=== PATIENT | female | born 1965 | race Caucasian/White ===

== ENCOUNTER 2020-10-28 14:15 | Emergency (ER) | payer OTHER | END 2020-10-28 15:43 | disposition left against medical advice (07) | LOC: FER 14:15 | DX: B34.9 Viral infection, unspecified (principal); I10 Essential (primary) hypertension | CPT/HCPCS: 99284 ==

== ENCOUNTER → 2021-01-20 | Day surgery (SDC) | payer OTHER ==
[~2021-01-20] VITALS: Ht 172.7 cm; Wt 106.7 kg
[~2021-01-20] MED LIST: EFFEXOR XR150 MG PO; HYDROCHLOROTHIA50 MG PO; HYDROCODON-ACE1 EAC2 PO; LAMICTAL100 MG PO; LEVOTHYROXINE175 MCG PO; LOSARTAN POTASS50 MG PO; NORVASC5 MG PO; OMEPRAZOLE40 MG PO; ONDANSETRON HCL4 MG PO; VENTOLIN (2.5 MG/3 M INH; VITAMIN B-121000 MC1 IJ; [UNRECOGNIZED DRUG - OTHER] PO
== END | disposition home or self-care (01) ==
LOC: FAS 06:33
DX: Z12.11 Encounter for screening for malignant neoplasm of colon (principal); K63.5 Polyp of colon; L91.8 Other hypertrophic disorders of the skin; J30.9 Allergic rhinitis, unspecified; F41.9 Anxiety disorder, unspecified; F31.9 Bipolar disorder, unspecified; K21.9 Gastro-esophageal reflux disease without esophagitis; I10 Essential (primary) hypertension; E78.5 Hyperlipidemia, unspecified; E03.9 Hypothyroidism, unspecified; G47.00 Insomnia, unspecified; E53.8 Deficiency of other specified B group vitamins; E66.9 Obesity, unspecified; F17.200 Nicotine dependence, unspecified, uncomplicated; Z79.899 Other long term (current) drug therapy
CPT/HCPCS: J2250; J2704; J7120